=== PATIENT | female | born 1965 | race Caucasian/White ===

== ENCOUNTER → 2020-02-29 14:32 | Outpatient (BNVA) | payer OTHER, SELFPAY | PROVIDERS: Family Provider Family Medicine; PCP Nurse Practitioner Family; Visit Provider Family Medicine | DX: Z11.59 Encounter for screening for other viral diseases (principal) | CPT/HCPCS: 87635 ==

== ENCOUNTER → 2021-11-03 11:30 | Outpatient (BNVA) | payer MEDICAID, SELFPAY | PROVIDERS: Family Provider Family Medicine; PCP Family Medicine; Referring Provider Family Medicine; Visit Provider Surgery | DX: R13.10 Dysphagia, unspecified (principal); K21.9 Gastro-esophageal reflux disease without esophagitis | CPT/HCPCS: 99203 ==

== ENCOUNTER 2022-12-13 12:47 | Outpatient (CLI) | payer MEDICAID, SELFPAY ==
--- NOTE | 2022-12-13 13:09 | MM_ITS ---
WS: [id number] BILATERAL 3D TOMOSYNTHESIS DIGITAL SCREENING MAMMOGRAPHY WITH CAD CLINICAL INFORMATION: SCREENING HISTORY: Screening mammogram. No current complaints. COMPARISON: 2020 TECHNIQUE: Bilateral CC and MLO views. FINDINGS: Scattered fibroglandular densities bilaterally. No suspicious focal mass, asymmetry, calcifications, or architectural distortion. No evidence of malignancy. Punctate and lucent centered calcifications. Stable clustered calcifications bilaterally. MM/[place] [id number] IMPRESSION: BI-RADS: 2-Benign FOLLOW UP: 1 Year Follow-up Recommend return to annual screening mammography.
== END 2022-12-13 12:48 | disposition home or self-care (01) ==
LOC: RAD 12:51 → MOBLMAM 13:08
PROVIDERS: PCP Family Medicine; Visit Provider Registered Nurse
DX: Z12.31 Encounter for screening mammogram for malignant neoplasm of breast (principal)
CPT/HCPCS: 77063; 77067

== ENCOUNTER → 2023-01-13 11:22 | Outpatient (BNVA) | payer MEDICAID, SELFPAY | PROVIDERS: PCP Family Medicine; Visit Provider Student in an Organized Health Care Education/Training Program | DX: M17.11 Unilateral primary osteoarthritis, right knee | CPT/HCPCS: 73560; 73565 ==

== ENCOUNTER 2023-01-18 15:22 | Outpatient (CLI) | payer MEDICAID, SELFPAY | END 2023-01-18 15:23 | disposition home or self-care (01) | LOC: SPT 15:23 | PROVIDERS: PCP Family Medicine; Visit Provider Student in an Organized Health Care Education/Training Program | DX: Z46.89 Encounter for fitting and adjustment of other specified devices (principal); M17.11 Unilateral primary osteoarthritis, right knee | CPT/HCPCS: 97760; L1851 ==

== ENCOUNTER → 2024-09-07 11:10 | Outpatient (BNVA) | payer MEDICAID, SELFPAY | PROVIDERS: PCP Family Medicine; Visit Provider Internal Medicine | DX: E78.5 Hyperlipidemia, unspecified (principal); E11.9 Type 2 diabetes mellitus without complications; E03.9 Hypothyroidism, unspecified | CPT/HCPCS: 80053; 80061; 82044; 83036; 84439; 84443 ==

== ENCOUNTER 2024-12-07 07:57 | Outpatient (CLI) | payer MEDICAID, SELFPAY ==
[2024-12-07 08:59] LABS: Estmated Average Glucose 214; Hemoglobin A1C 9.1 % (4.0-6.0)
[2024-12-07 09:13] LABS: Creatinine Urine, Random 166 mg/dL (28-217); Microalbum Creatinine Ratio Ur 6 mg/dL (0-20)
[2024-12-07 09:21] LABS: Alanine Aminotransferase 49 U/L (0-33); Albumin Level 4.0 g/dL (3.5-5.2); Alkaline Phosphatase 118 U/L (35-105); Anion Gap 18.0 (5-19); Aspartate Amino Transferase 57 U/L (0-32); Blood Urea Nitrogen 14 mg/dL (6-20); Calcium 9.5 mg/dL (8.5-10.5); Carbon Dioxide 25 mmol/L (22-29); Chloride 99 mmol/L (98-107); Cholesterol 205 mg/dL (0-200); Free T4 Free Thyroxine 1.14 ng/dL (0.82-1.77); Globulin 3.1 g/dL (1.3-4.6); Glucose 197 mg/dL (65-115); HDL Cholesterol 39 mg/dL (60-100); Osmolality Calculated 292 mOsm/kg (285-295); Potassium 4.0 mmol/L (3.5-5.1); Sodium 138 mmol/L (136-145); Thyroid Stimulating Hormone 3.30 uIU/mL (0.27-4.20); Total Protein 7.1 g/dL (6.6-8.7); Triglycerides 369 mg/dL (0-150)
== END 2024-12-07 07:58 | disposition home or self-care (01) ==
PROVIDERS: PCP Family Medicine; Visit Provider Internal Medicine
DX: E11.9 Type 2 diabetes mellitus without complications (principal); E03.9 Hypothyroidism, unspecified
CPT/HCPCS: 36415; 80053; 80061; 82044; 83036; 84439; 84443